=== PATIENT | female | born 1965 | race Caucasian/White ===

== ENCOUNTER 2020-01-20 08:10 | Day surgery (SDC) | payer BC, SELFPAY ==
[2020-01-19 15:59] VITALS: BMI 21.7
[2020-01-20] VITALS (7 sets, daily range): BP systolic 109–124; BP diastolic 66–86; PULSE 66–85; RESP 16–25; TEMP 36.2–37.2; O2SAT 92–100
--- NOTE | 2020-01-20 08:27 | ANES.PREANE2 ---
Pre-Anesthetic Assessment Pre-Anesthetic Assessment: Height/Weight: Height 1.68 m Weight 61.235 kg Preop Diagnosis: Ventral hernia Proposed Procedure: Operation Date: 01/20/20 09:55 Proposed Procedures p Ventral Hernia Repair (Open) w/ Mesh [id number] K43.9(Not Applicable) - Toy Arreguin MD Familial anesthetic complications: None Was Beta Mickie taken within 24 hours: N/A Last intake: NPO > 8 hrs Social: Social History: No alcohol and No tobacco Exam: Pre-Anes Outpt Exam: alert, oriented x 3, clear to auscultation bilaterally and regular rate & rhythm Airway: Cervical ROM: WNL MP: 2 Dentition: Full Pulmonary: Pulmonary: None reported CV/HEM: CV/HEM: None reported : : None reported Hepatic: Hepatic: None reported GI: GI: None reported Metabolic: Metabolic: None reported Musc/skel: Musc/skel: None reported Neuropsych: Neuropsych: None reported Anesthetic Plan: ASA status: 1 Anesthesia: General Risk of > 500 ml blood loss (7ml/kg in children): No PFSH Anesthesia PFSH: Social History Smoking and tobacco status: never smoked Second hand smoke exposure: No Alcohol intake: never Adopted: No Caregiver/support person: Yes Lives independently: Yes Household members: spouse Housing: House Marital status: service: No Current occupational status: employed 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
--- NOTE | 2020-01-20 08:32 | W.PM.OPSUD ---
Surgery/Procedure H&P Update DATE OF PROCEDURE: January 20, 2020 DATE H&P PERFORMED: 01/19/20 H&P UPDATE INFORMATION: I have reviewed H&P completed within last 30 days, I have examined patient prior to procedure and No changes to prior documentation PREOP DIAGNOSIS: Ventral hernia PRIMARY INDICATION FOR PROCEDURE: The same PLANNED PROCEDURE: Operation Date: 01/20/20 09:55 Proposed Procedures p Ventral Hernia Repair (Open) w/ Mesh [id number] K43.9(Not Applicable) - Toy Arreguin MD
[2020-01-20] MEDS: sodium chloride 0.9% 1,000 ML 30 ML IV (08:52)
--- NOTE | 2020-01-20 11:02 | PM.OP ---
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 After thorough history physical examination and reviewing the chart I did baby counselor the patient for laparoscopic ventral hernia repair with mesh placement possible open, patient agreed to proceed accordingly. Informed consent per chart Procedure: Patient was brought to the operating room after appropriate preoperative identification at the holding area. Patient had received heparin subcutaneous ultrasonic seaming machine operator to the OR.Patient Was then placed in supine position, Parks catheter was administered by circulating nurse revealing clear urine.General endotracheal anesthesia was administered the patient was intubated without incident.Left arm was tucked. Time-out was done verifying the patient's name/date of /planned procedure and destination after the procedure, all were in agreement. SCDs confirmed to be functioning, preoperative antibiotics administered per protocol, and beta baldemar protocol was confirmed, appropriate positioning of the patient was done . Patient was secured appropriately to the table and all pressure points were padded, anesthesia was asked to place an OG tube to decompress the stomach Prep and drape of the abdomen was done under the usual sterile technique. After Injection of local anesthetic lidocaine 2% An incision was made in the left upper subcostal margin along the left anterior axillary line of the abdomen , 5 mm Opti-Vu trocar was used with a 0 scope 5 mm under direct visualization safe entrance to the abdomen was achieved and all through abdominal wall layers. The abdomen was insufflated to 15 mmHg at 40 L/m , abdomen was surveyed showing no signs of injuries, followed by placement of 12 mm trocar under direct visualization about a handbreadth inferior to first trocar, followed by another 5 mm trocar inserted 1 handbreadth inferior to the 12 mm trocar. Using a standard laparoscopic scissors connected to heat cautery omental adhesions were carefully dissected out from the hernia defect. [place] forceps attached to monopolar was then used, for hemostasis and for dissection of the hernial contents was achieved, due to the hypervascularity of the fatty contents of the hernia I elected to use a LigaSure for more hemostasis, suction was carried all the way and took down most of the falciform ligament of the liver. At this point measurement of the fascial defect about 1 inch in diameter the supraumbilical region , there was another fascial defect at the umbilicus region measured about 2 cm in diameter, both defects were closed by trans-fascial PDS [id number] sutures under direct visualization. At that point a Proceed mesh system 15 cm x 10cm in diameter is decided upon having about more than 5 cm overlap from the fascial defects edge. Application of PDS sutures at the 4 portions of the mesh was done after appropriate orientation ex vivo, then the mesh was rolled then introduced through the 12 mm trocar, making sure that the smooth service faces the bowel and the rough surface faces abdominal wall, fascial closure device was introduced after creating 4 skin stab incisions using 11 blade knife, matching site of exit of PDS sutures, fascial closure device was introduced to grab onto the 2 limbs of PDS sutures from each pole of the mesh and grabbed and tied down ex vivo, both defects were at the center of the mesh. At this point the mesh was adjusted found to be in a good position with good overlap,no trans-fascial sutures were used at this point, an absorbable Tack fixation device, performing a double crown technique to secure the mesh in place was used, Hemostasis was secured, there was no evidence of bleeding, the mesh appears to be in good position and well spread without crumbling. Final survey laparoscopy was done showing no injuries Bilateral TAP (transversus abdominous plain peripheral nerve block )block using Exparel 20 mL Exparel 40 ml Normal saline 20 ml bupivacaine 0.25% 30 mL on each side injected 20 mL injected the port sites Closure of the 12 mm trocar site, using interrupted Vicryl sutures under direct visualization.Trocars were then taken out under direct visualization and gas was allowed to escape., followed by subcuticular closure for all trocar sites, including the fascial closure device sites , Dermabond was applied Patient tolerated the procedure well, and an abdominal binder was then wrapped around the patient's abdomen.The patient was then extubated and transferred to the recovery room in stable condition Parks catheter was taken out at the end of the procedure without complication All count of instruments and sponges were completed I Was present for the whole entire procedure
--- NOTE | 2020-01-20 11:35 | SUR.PHASEI ---
1129 PATIENT TO PACU AT THIS TIME FROM OR. RR EVEN AND UNLABORED, PLACED ON SIMPLE MASK AT 8L, SPO2 100%. ABDOMINAL BINDER IN PLACE. PATIENT AROUSES TO VERBAL STIMULI. DENIES PAIN.
--- NOTE | 2020-01-20 11:51 | SUR.PHASEI ---
1149 PATIENT TO OPS AT THIS TIME. NO DISTRESS. RATES PAIN 4/10. ABDOMINAL BINDER IN PLACE TO ABDOMEN.
[2020-01-20] MEDS: HYDROcodone-acetaminophen 5-325 mg Tablet 1 TAB PO (12:00)
== END 2020-01-20 13:00 | disposition home or self-care (01) ==
PROVIDERS: Visit Provider Surgery
PROC: 0WQF4ZZ Repair Abdominal Wall, Percutaneous Endoscopic Approach (ICD-10-PCS; CPT 49652; principal; 2020-01-20 09:35)
DX: K43.9 Ventral hernia without obstruction or gangrene (principal)
CPT/HCPCS: 49652; 12345; 51702; 88302; 96365; C9290; J0131; J0690; J2001; J2250; J2405; J2704; J2765; J3010; J3490; J7030

== ENCOUNTER → 2020-03-17 10:28 | Outpatient (BNVA) | payer BC, SELFPAY | PROVIDERS: Visit Provider Obstetrics & Gynecology | DX: Z01.419 Encounter for gynecological examination (general) (routine) without abnormal findings (principal) | CPT/HCPCS: 88175 ==

== ENCOUNTER 2020-11-15 12:59 | Outpatient (CLI) | payer OTHER, SELFPAY ==
--- NOTE | 2020-11-15 13:30 | MM_ITS ---
WS: [id number] DIAGNOSTIC LEFT DIGITAL MAMMOGRAM WITH CAD HISTORY: T85.42XA - Displacement of breast prosthesis and implant, initial encounter. New palpable ar ea in the LEFT breast. COMPARISON: 06/11/2019. Technique: CC, MLO and ML views. Implant displacement views on the LEFT. Breast composition: There are scattered areas of fibroglandular density. LEFT breast implant has ani nged position and appearance since the prior study. There is extravasation of the silicone from the i mplant. There is also capsular retraction. No calcifications or suspicious mass identified. The extra vasated silicone from the implant does obscure soft tissue in the upper outer quadrant and lateral br east. There are several lymph nodes which appear prominent in the LEFT axillary tail towards the axil la. Unfortunately, the RIGHT breast was not imaged at this time for comparison. The RIGHT breast needs to be imaged and the lymph nodes need to be evaluated for stability. It will be important to evaluate f or stability of the lymph nodes or asymmetry between the LEFT and RIGHT breast. Also the capsular con traction of both implants should be evaluated. It has been greater than 1 year since the RIGHT breast was imaged also. MM/[place] [id number] IMPRESSION: BI-RADS: 0-Incomplete: Need additional imaging evaluation FOLLOW UP: Need Additional Imaging 1. Diagnostic imaging of the RIGHT breast should be performed at this time to complete this diagnostic workup in a patient of 55 years of age and a change in the LEFT breast. 2. Ultrasound may be necessary to reevaluate the lymph nodes within the axilla . Lymph node evaluation will be further addressed after the RIGHT diagnostic ma mmogram has been performed. 3. LEFT breast implant is ruptured.
== END 2020-11-15 13:00 | disposition home or self-care (01) ==
LOC: RADSHAW 13:04
PROVIDERS: PCP Family Medicine; Visit Provider Obstetrics & Gynecology
DX: T85.42XA Displacement of breast prosthesis and implant, initial encounter (principal); Y83.8 Other surgical procedures as the cause of abnormal reaction of the patient, or of later complication, without mention of misadventure at the time of the procedure
CPT/HCPCS: 77065

== ENCOUNTER 2020-12-21 14:30 | Outpatient (CLI) | payer OTHER, SELFPAY ==
--- NOTE | 2020-12-21 14:30 | MM_ITS ---
WS: [id number] DIAGNOSTIC RIGHT DIGITAL MAMMOGRAM WITH implant displacement views and CAD LEFT breast ultrasound, limited HISTORY: T85.9XXA - Unspecified complication of internal prosthetic device, implant and graft, initia l encounter COMPARISON: 06/11/2019, 11/15/2020 Technique: RIGHT CC, MLO and ML views. Implant displacement views. Breast composition: There are scattered areas of fibroglandular density. No suspicious masses or ele cifications. The RIGHT breast implant demonstrates moderate calcified capsular contraction. The impla nt is intact. No adenopathy. LEFT breast ultrasound, limited. Ultrasound directed to the axilla. There is a very large amount of shadowing and ill-defined masses w ithin the LEFT axilla. These are consistent with granulomas from a ruptured implant. Patient has a ru ptured LEFT breast implant as seen on a prior mammogram. MM/[place] [id number] IMPRESSION: BI-RADS: 2-Benign FOLLOW UP: 1 Year Follow-up Density seen in the LEFT axilla on the prior mammogram correspond to granulomas from the silicone implant rupture. No RIGHT breast abnormality. RIGHT breast implant contains capsular contraction .
--- NOTE | 2020-12-21 14:38 | US_ITS ---
WS: [id number] DIAGNOSTIC RIGHT DIGITAL MAMMOGRAM WITH implant displacement views and CAD LEFT breast ultrasound, limited HISTORY: T85.9XXA - Unspecified complication of internal prosthetic device, implant and graft, initia l encounter COMPARISON: 06/11/2019, 11/15/2020 Technique: RIGHT CC, MLO and ML views. Implant displacement views. Breast composition: There are scattered areas of fibroglandular density. No suspicious masses or ele cifications. The RIGHT breast implant demonstrates moderate calcified capsular contraction. The impla nt is intact. No adenopathy. LEFT breast ultrasound, limited. Ultrasound directed to the axilla. There is a very large amount of shadowing and ill-defined masses w ithin the LEFT axilla. These are consistent with granulomas from a ruptured implant. Patient has a ru ptured LEFT breast implant as seen on a prior mammogram. US/US breast LT limited* [id number] IMPRESSION: BI-RADS: 2-Benign FOLLOW UP: 1 Year Follow-up Density seen in the LEFT axilla on the prior mammogram correspond to granulomas from the silicone implant rupture. No RIGHT breast abnormality. RIGHT breast implant contains capsular contraction .
== END 2020-12-21 14:31 | disposition home or self-care (01) ==
LOC: RADSHAW 14:33
PROVIDERS: PCP Family Medicine; Visit Provider Obstetrics & Gynecology
DX: T85.9XXA Unspecified complication of internal prosthetic device, implant and graft, initial encounter (principal)
CPT/HCPCS: 76642; 77065

== ENCOUNTER → 2021-05-10 14:34 | Outpatient (BNVA) | payer OTHER, SELFPAY | PROVIDERS: PCP Family Medicine; Visit Provider Obstetrics & Gynecology | DX: N95.9 Unspecified menopausal and perimenopausal disorder (principal); R68.82 Decreased libido; Z01.419 Encounter for gynecological examination (general) (routine) without abnormal findings | CPT/HCPCS: 83001; 83002; 84403 ==

== ENCOUNTER → 2022-09-13 11:34 | Outpatient (BNVA) | payer OTHER, SELFPAY | PROVIDERS: PCP Family Medicine; Visit Provider Obstetrics & Gynecology | DX: R68.82 Decreased libido (principal) | CPT/HCPCS: 84403 ==

== ENCOUNTER → 2022-09-27 15:40 | Outpatient (BNVA) | payer OTHER, SELFPAY | PROVIDERS: PCP Family Medicine; Visit Provider Obstetrics & Gynecology | DX: Z01.419 Encounter for gynecological examination (general) (routine) without abnormal findings (principal); Z12.39 Encounter for other screening for malignant neoplasm of breast; Z12.11 Encounter for screening for malignant neoplasm of colon | CPT/HCPCS: 87624 ==

== ENCOUNTER → 2022-10-18 11:34 | Outpatient (BNVA) | payer OTHER, SELFPAY | PROVIDERS: PCP Family Medicine; Referring Provider Obstetrics & Gynecology; Visit Provider Surgery | DX: N95.9 Unspecified menopausal and perimenopausal disorder (principal); R68.82 Decreased libido; Z12.11 Encounter for screening for malignant neoplasm of colon; Z86.010 Personal history of colon polyps | CPT/HCPCS: 84403 ==

== ENCOUNTER 2022-12-23 15:44 | Outpatient (CLI) | payer OTHER, SELFPAY ==
--- NOTE | 2022-12-23 15:49 | MM_ITS ---
WS: [id number] BILATERAL 3D TOMOSYNTHESIS DIGITAL SCREENING MAMMOGRAPHY WITH CAD CLINICAL INFORMATION: Z12.39 - Encounter for other screening for malignant neop... HISTORY: Screening mammogram. No current complaints. COMPARISON: 2020 TECHNIQUE: Bilateral CC and MLO views. FINDINGS: Bilateral breast implants have been revised compared to previous. Vascular calcification. Scattered fibroglandular densities bilaterally. No suspicious focal mass, asymmetry, calcifications, or architectural distortion. No evidence of malignancy. MM/[place] [id number] IMPRESSION: BI-RADS: 2-Benign FOLLOW UP: 1 Year Follow-up Recommend return to annual screening mammography.
== END 2022-12-23 15:45 | disposition home or self-care (01) ==
PROVIDERS: PCP Family Medicine; Visit Provider Family Medicine
DX: Z12.31 Encounter for screening mammogram for malignant neoplasm of breast (principal)
CPT/HCPCS: 77063; 77067

== ENCOUNTER 2023-08-01 05:57 | Day surgery (SDC) | payer OTHER, SELFPAY ==
[2023-08-01 06:11] VITALS: BP 111/66; PULSE 68; RESP 16; TEMP 35.8; O2SAT 97
[2023-08-01 06:12] VITALS: BMI 24.1
[2023-08-01 06:16] LABS: OR HCG Qualitative Urine Negative (Negative)
[2023-08-01] MEDS: sodium chloride 0.9% 1,000 ML 30 ML IV (06:19)
--- NOTE | 2023-08-01 06:57 | P.HP_ITS ---
Providers/Chief Complaint Primary Care Provider: Audelia Darden MD Chief Complaint: Z12.11 History of Present Illness Mattie Ramirez is a 57 year old female Review of Systems General: Reports: 10 or more systems reviewed and unremarkable except in HPI and below Medications/Allergies Home Medications Medication Instructions Recorded Confirmed Last Taken Type estradiol 0.5 mg tablet 0.5 mg PO DAILY 07/31/22 08/01/23 07/31/23 History progesterone micronized 200 mg 200 mg PO 07/31/22 10/18/22 Unknown History capsule testosterone 50 mg/5 gram (1 %) 1 tube transdermal QAM 09/27/22 08/01/23 08/01/23 History transdermal gel Allergies Allergy/AdvReac Type Severity Reaction Status Date / Time No Known Allergies Allergy Verified 07/30/23 09:56 PFSH Acute PFSH: Medical History (Updated 10/18/22 @ 12:17 by Ashkan Correia DO) History of colon polyps History of malignant melanoma Umbilical hernia Surgical History History of colonoscopy (~2018) History of dilatation and curettage (12/16/11) Incomplete . [place] [facility] [place] History of elective breast augmentation (~1987) Age 23 Bilateral Implants. Does not remember type History of tonsillectomy and adenoidectomy (~1987) History of umbilical hernia repair (01/20/20) Laparoscopic hernia repair with mesh. Per[place] Dr. Arreguin at [facility] [place]. Family History Denies family history of Colon cancer Ovarian cancer Diabetes Heart disease Hypercholesteremia Breast cancer Hypertension Uterine cancer Thyroid disease Stroke Social History Substance/Drug Use: never Do you think of yourself as: Straight/Heterosexual Vitals/I&O/Wt Last Vital Signs Temp 96.4 F L 08/01/23 06:11 Pulse 68 08/01/23 06:11 Resp 16 08/01/23 06:11 BP 111/66 08/01/23 06:11 Pulse Ox 97 08/01/23 06:11 O2 Del Method Room Air 08/01/23 06:11 Weight last 48 hrs Weight 145 lb A&P Assessment and plan (1) History of colon polyps: Plan Colonoscopy Attestations Medical Necessity Statement*: home Coding Level of Care Code Acute Code for Chg Fwd Diagnoses History of colon polyps Z86.010
--- NOTE | 2023-08-01 06:57 | ANES.PREANE2 ---
Pre-Anesthetic Assessment Height/Weight: Height 1.65 m Weight 65.771 kg Temp Pulse Resp BP Pulse Ox O2 Del Method 96.4 F L 68 16 111/66 97 Room Air 08/01/23 06:11 08/01/23 06:11 08/01/23 06:11 08/01/23 06:11 08/01/23 06:11 08/01/23 06:11 Operation Date: 08/01/23 07:00 Proposed Procedures p Colonoscopy 42394,Z12.11(Not Applicable) - Ashkan Correia DO Familial anesthetic complications: none Was Beta Mickie taken within 24 hours: N/A Was Clonidine taken within 24 hours: N/A Last intake: Intake Last Liquid Date 07/31/23 Last Liquid Time 21:00 Last Solid Date 07/30/23 Last Solid Time 13:00 Social No alcohol and No tobacco Exam alert and oriented x 3 Airway Submandibular: within normal limits Cervical ROM: within normal limits Mallampati: Class I Dentition: full History/ROS No significant complaints Anesthetic Plan ASA status: 1 Anesthesia: Anesthesia Evaluation, General and MAC Medications/Allergies Home Medications Medication Instructions Recorded Confirmed Last Taken Type estradiol 0.5 mg tablet 0.5 mg PO DAILY 07/31/22 08/01/23 07/31/23 History progesterone micronized 200 mg 200 mg PO 07/31/22 10/18/22 Unknown History capsule testosterone 50 mg/5 gram (1 %) 1 tube transdermal QAM 09/27/22 08/01/23 08/01/23 History transdermal gel Allergies Allergy/AdvReac Type Severity Reaction Status Date / Time No Known Allergies Allergy Verified 07/30/23 09:56 Current Medications Generic Name Dose Route Start Last Admin Trade Name Freq PRN Reason Stop Dose Admin Sodium Chloride 1,000 mls @ 30 mls/hr 08/01/23 06:15 08/01/23 06:19 Sodium Chloride 0.9% IV 08/02/23 06:14 30 mls/hr .Q24H MELINA Administration PFSH Anesthesia Medical History (Updated 10/18/22 @ 12:17 by Ashkan Correia DO) History of colon polyps History of malignant melanoma Umbilical hernia Surgical History History of colonoscopy (~2018) History of dilatation and curettage (12/16/11) Incomplete . Performed by Dr. Neff at [facility] [place]. History of elective breast augmentation (~1987) Age 23 Bilateral Implants. Does not remember type History of tonsillectomy and adenoidectomy (~1987) History of umbilical hernia repair (01/20/20) Laparoscopic hernia repair with mesh. Performed by Dr. Arreguin at [facility] [place]. Family History Denies family history of Colon cancer Ovarian cancer Diabetes Heart disease Hypercholesteremia Breast cancer Hypertension Uterine cancer Thyroid disease Stroke Social History Substance/Drug Use: never Do you think of yourself as: Straight/Heterosexual Data Anesthesia Cardiac Studies: No Data to Display
[2023-08-01 07:31] VITALS: BP 99/53; PULSE 63; RESP 16; TEMP 36.1; O2SAT 96
[2023-08-01 07:54] VITALS: BP 103/72; PULSE 57; RESP 18; O2SAT 100
--- NOTE | 2023-08-01 08:55 | ANE.PACU2 ---
Inpatient post-anesthesia follow up: Airway intact: Yes Vital signs: Temperature 97 F Pulse Rate 57 Respiratory Rate 18 Blood Pressure 103/72 Pulse Oximetry 100 Oxygen Delivery Me thod Room Air Oxygen Flow Rate Fraction of Inspir ed Oxygen Hydration adequate: Yes Nausea and vomiting: No Pain level: 1 Mental status: Baseline
== END 2023-08-01 08:10 | disposition home or self-care (01) ==
PROVIDERS: PCP Family Medicine; Visit Provider Surgery
PROC: 0DJD8ZZ Inspection of Lower Intestinal Tract, Via Natural or Artificial Opening Endoscopic (ICD-10-PCS; CPT 45378; principal; 2023-08-01 07:00)
DX: Z12.11 Encounter for screening for malignant neoplasm of colon (principal); Z86.010 Personal history of colon polyps; D12.2 Benign neoplasm of ascending colon; D12.5 Benign neoplasm of sigmoid colon
CPT/HCPCS: 45385; 81025; 84703; 88305; J2704; J7030

== ENCOUNTER 2024-12-16 08:44 | Outpatient (CLI) | payer OTHER, SELFPAY ==
--- NOTE | 2024-12-16 08:48 | MM_ITS ---
WS: [id number] BILATERAL SCREENING DIGITAL BREAST MAMMOGRAPHY WITH ONEL DISPLACEMENT VIEWS. CAD PERFORMED. HISTORY: SCREENING COMPARISON: 12/23/2022, 12/21/2020 and 11/15/2020 Bilateral craniocaudal and mediolateral oblique views are performed with tomosynthesis and SM. Onel displacement views in CC and MLO projection also performed. Breasts composition: There are scattered areas of fibroglandular density. Implants are intact. No capsular contraction. No suspicious masses or calcifications. No nipple retraction. MM/MM scr tomosynthesis [id number] IMPRESSION: BI-RADS: 2 - Benign. FOLLOW-UP: 1 Year Follow-up
== END 2024-12-16 08:45 | disposition home or self-care (01) ==
LOC: RAD 08:46
PROVIDERS: PCP Family Medicine
DX: Z12.31 Encounter for screening mammogram for malignant neoplasm of breast (principal); R92.323 Mammographic fibroglandular density, bilateral breasts; Z98.82 Breast implant status
CPT/HCPCS: 77063; 77067